=== PATIENT | male | born 1980 | race Caucasian/White ===

== ENCOUNTER 2019-02-03 14:24 | Emergency (ER) | payer OTHER ==
[~2019-02-03] VITALS: Ht 177.8 cm; Wt 73.5 kg
[2019-02-03 14:51] VITALS: BP_SYST 130
--- NOTE | 2019-02-03 15:26 | NUR ---
Patient to ER bed 07 for evaluation. Side rails up.
--- NOTE | 2019-02-03 15:35 | NUR ---
Pt AAOx4, [place] speaking only, c/o 01/19 pain to L first digit s/p crush injury with wrench at work prior to arrival. No active bleeding present. No other injuries/complaints per pt/noted. Will continue to monitor.
--- NOTE | 2019-02-03 15:49 | NUR ---
ER Dr. Ramos at bedside examining patient.
[2019-02-03 16:51] VITALS: BP_SYST 122
--- NOTE | 2019-02-03 16:51 | NUR ---
Patient given written and verbal discharge instructions and verbalizes understanding. ER MD Ramos discussed with patient the results and treatment provided. Patient in stable condition. ID arm band removed. Rx of Motrin, Ultram given. Patient educated on pain management and to follow up with PMD. Pain Scale 0. Opportunity for questions provided and answered. Medication side effect fact sheet provided.
== END 2019-02-03 16:51 | disposition home or self-care (01) ==
LOC: SED 14:24
DX: S60.022A Contusion of left index finger without damage to nail, initial encounter (principal); W23.0XXA Caught, crushed, jammed, or pinched between moving objects, initial encounter; Y93.89 Activity, other specified; Y92.69 Other specified industrial and construction area as the place of occurrence of the external cause; Y99.8 Other external cause status
CPT/HCPCS: 73140-TC; 99283